=== PATIENT | male | born 1980 | race Caucasian/White ===

== ENCOUNTER 2022-10-02 09:29 | Emergency (ER) | payer SELFPAY | END 2022-10-02 12:05 | disposition home or self-care (01) | LOC: LL.ED 09:29 | DX: S06.30AA Unspecified focal traumatic brain injury with loss of consciousness status unknown, initial encounter (principal); S80.02XA Contusion of left knee, initial encounter; Z72.0 Tobacco use; Y04.0XXA Assault by unarmed brawl or fight, initial encounter | CPT/HCPCS: 70450; 99284 ==